=== PATIENT | female | born 1960 | race Caucasian/White ===

== ENCOUNTER 2016-05-28 07:44 | Day surgery (SDC) | payer OTHER ==
[~2016-05-28] VITALS: Ht 170.2 cm; Wt 53.1 kg
[~2016-05-28 07:44] MED LIST: ADALAT CC 60 MG60 MG PO; ADULT LOW DOSE81 M1 PO; ALBUTEROL SULF8.5 GM IH; ALEVE220 MG PO; ANCEF,KEFZ2 GM/100 M IV; ANTIVERT25 MG PO; APRESOLINE25 MG PO; ASPIR 8181 M1 PO; ASPIR-LOW81 MG PO; ATIVAN0.5 MG PO; B COMPLEX WITH1 EACH PO; CATAPRES0.1 MG PO; CYPROHEPTADINE H4 MG PO; DEPAKOTE ER500 MG PO; DIALYVITE TABL1 EACH PO; DILAUDID2 MG PO; DILAUDID4 MG PO; DIOVAN80 MG PO; DIVALPROEX SOD500 M1 PO; DULCOLAX10 MG PR; DURAGESIC12 MCG TD; EMLA 30 GM30 GM TP; ENULOSE10 GM/15 M PO; FENTANYL1 EAC5 TD; FEOSOL325 MG PO; FLEET ENEMA-AD118 ML PR; FLOVENT 11120 INHALA IH; FUROSEMIDE20 MG PO; FUROSEMIDE40 MG PO; GENERLAC10 GM/15 M PO; HUMALOG100 UNIT/2 SC; HYDRALAZINE HCL50 MG PO; HYDROXYZINE HCL25 MG PO; KEFLEX500 MG PO; KIONEX15 GM/60 M PO; LABETALOL HCL200 MG PO; LANTUS (UNITS)1 UNIT SC; LANTUS 10100 UNITS/ SC; LANTUS 3 M100 UNITS1 SC; LASIX10 MG PO; LASIX20 MG PO; LASIX40 MG PO; LEVEMIR100 UNIT/2 SC; LEVOCETIRIZINE D5 MG PO; LEXAPRO10 MG PO; LEXAPRO20 MG PO; LIDOPRIL 2.5%-1 EACH TP; LO-DOSE ASPIRIN81 M1 PO; LOPRESSOR100 MG PO; LORAZEPAM0.5 MG PO; LOSARTAN POTASS50 MG PO; LOTENSIN20 MG PO; METOPROLOL SUCC50 MG PO; METOPROLOL TART25 MG PO; METRONIDAZOLE500 MG PO; MILK OF MAGN PO; MIRTAZAPINE7.5 MG PO; NEURONTIN300 MG PO; NEXIUM40 MG PO; NIFEDIAC CC60 MG PO; NIFEDIPINE ER60 MG PO; NORCO 5/3251 TABLET PO; NORCO 7.5/321 TABLET PO; NORMODYNE,TRAN200 MG PO; NORVASC10 MG PO; NOVOLOG 10100 UNITS/ SC; NOVOLOG PE100 UNITS/ SC; OXYCODONE HCL5 MG PO; OXYCODONE-ACET1 EACH PO; PANTOPRAZOLE SO40 MG PO; PERCOCET 5/31 TABLET PO; PERIACTIN4 MG PO; PLAVIX75 MG PO; PROTONIX40 MG PO; PROVENTIL HFA6.7 GM IH; REMERON15 M2 PO; RENVELA800 MG PO; ROXICODONE5 MG PO; SENSIPAR30 MG PO; SENSIPAR60 MG PO; SIMVASTATIN10 MG PO; SIMVASTATIN20 MG PO; TOPROL XL50 MG PO; TYLENOL EXTRA500 M1 PO; TYLENOL PM1 CAPLET PO; TYLENOL REGULA325 MG PO; VALPROIC A250 MG/5 M PO; VANCOMYCIN HCL1 GM IV; VANCOMYCIN HCL500 MG IV; VENTOLIN HFA18 GM IH; VICODIN,LORT1 TABLET PO; VITAMIN D PO; VITAMIN D35000 UNIT PO; VITAMIN D5000 UNIT PO; ZOCOR20 MG PO; ZOFRAN ODT4 MG PO; ZOFRAN4 MG PO
[2016-05-28 08:29] LABS: POINT-OF-CARE METER ID UU13113696
[2016-05-28 09:32] LABS: METH RESISTANT S AUREUS PCR NEGATIVE (NEGATIVE); PROBE CHECK PASS; SPECIMEN PROCESSING CONTROL PASS
[2016-05-28 09:40] LABS: POINT-OF-CARE METER ID UU13113819
== END 2016-05-28 10:52 ==
LOC: CATH 07:44
PROVIDERS: Surgery
DX: T82.858A Stenosis of other vascular prosthetic devices, implants and grafts, initial encounter (principal); Y83.2 Surgical operation with anastomosis, bypass or graft as the cause of abnormal reaction of the patient, or of later complication, without mention of misadventure at the time of the procedure; Z99.2 Dependence on renal dialysis; I12.0 Hypertensive chronic kidney disease with stage 5 chronic kidney disease or end stage renal disease; E11.22 Type 2 diabetes mellitus with diabetic chronic kidney disease; N18.6 End stage renal disease; I73.9 Peripheral vascular disease, unspecified; E78.5 Hyperlipidemia, unspecified; M19.90 Unspecified osteoarthritis, unspecified site; K21.9 Gastro-esophageal reflux disease without esophagitis; Z86.73 Personal history of transient ischemic attack (TIA), and cerebral infarction without residual deficits; Z86.14 Personal history of Methicillin resistant Staphylococcus aureus infection; F41.1 Generalized anxiety disorder
CPT/HCPCS: 82948; 87081; 87641; C1725; C1769; C1894; J1644; J2250; J3010

== ENCOUNTER → 2016-06-02 | Outpatient (CLI) | payer OTHER | LOC: MRI 13:23 → RAD 13:30 → MRI 13:30 | DX: S06.2X9D Diffuse traumatic brain injury with loss of consciousness of unspecified duration, subsequent encounter (principal) | CPT/HCPCS: 70551 ==

== ENCOUNTER 2016-08-05 17:52 | Emergency (ER) | payer OTHER ==
[~2016-08-05] VITALS: Ht 157.5 cm; Wt 52.8 kg
[2016-08-05 18:29] LABS: EOSINOPHIL (%) 2.1 % (0-5); EOSINOPHIL COUNT 0.1 K/uL (0-0.3); HEMATOCRIT 35.4 % (36.0-46.0); IMMATURE GRANULOCYTE (%) 0.8 % (0.0-0.7); INSTRUMENT ABS NEUTROPHIL CT 3.5 K/uL; MCHC 33.9 G/DL (30.0-36.0); MCV 100.3 FL (83-99); MEAN PLAT.VOLUME 10.9 uM^3 (9.5-12.4); MONOCYTE (%) 8.5 % (3-12); MONOCYTE COUNT 0.4 K/uL (0-0.8); NEUTROPHIL (%) 68.2 % (45-76); NEUTROPHIL COUNT 3.5 K/uL (1.8-6.4); PLATELET COUNT 147 K/uL (156-360); RBC DIS.WIDTH-CV 16.1 % (11.8-14.6); RBC DIS.WIDTH-SD 59.9 % (39-53); RED BLOOD COUNT 3.53 M/uL (3.80-5.20); WHITE BLOOD COUNT 5.2 K/uL (4.1-10.2)
[2016-08-05 18:38] LABS: INTER. NORMALIZED RATIO 1.1; PROTHROMBIN TIME 10.9 (9.2-11.2); PTT 27.9 (25-32)
[2016-08-05 18:39] LABS: CHLORIDE 98 mEq/L (99-109); POTASSIUM 3.2 mEq/L (3.7-5.4); SODIUM 138 mEq/L (136-147)
[2016-08-05 18:41] LABS: GLUCOSE 139 mg/dL (70-99)
[2016-08-05 18:43] LABS: ANION GAP 17 MEQ/L (2-14); TOTAL BILIRUBIN 0.5 mg/dL (0.0-1.0)
[2016-08-05 18:45] LABS: ALKALINE PHOSPHATASE 622 IU/L (3-129); GFR ESTIMATE (CALCULATED) 23 mL/min/
[2016-08-05 18:46] LABS: UREA NITROGEN (BUN) 19 mg/dL (9-23)
[2016-08-05 18:47] LABS: TROP-I INTERPRETATION NEGATIVE; TROPONIN-I 0.02 ng/mL (0.0-0.30)
[2016-08-05 18:48] LABS: LIPASE 160 U/L (1.0-51.0)
[2016-08-05 22:44] VITALS: BP 120/105
== END 2016-08-05 22:45 ==
LOC: EME → EDBD 17:52 → EME 17:52
PROVIDERS: Emergency Medicine
DX: G40.909 Epilepsy, unspecified, not intractable, without status epilepticus (principal); J45.909 Unspecified asthma, uncomplicated; I10 Essential (primary) hypertension; I25.2 Old myocardial infarction; E78.5 Hyperlipidemia, unspecified; E11.9 Type 2 diabetes mellitus without complications; K21.9 Gastro-esophageal reflux disease without esophagitis; Z86.73 Personal history of transient ischemic attack (TIA), and cerebral infarction without residual deficits; Z86.14 Personal history of Methicillin resistant Staphylococcus aureus infection; Z89.512 Acquired absence of left leg below knee; Z99.2 Dependence on renal dialysis
CPT/HCPCS: 70450; 71010; 80053; 81003; 83605; 83690; 84484; 85025; 85610; 85730; 87040; 87077; 87186; 87801; 93005; 99281; 99284; J2405

== ENCOUNTER 2017-01-28 07:32 | Day surgery (SDC) | payer OTHER ==
[~2017-01-28] VITALS: Ht 165.1 cm; Wt 56.7 kg
[2017-01-28 08:24] LABS: POINT-OF-CARE METER ID UU13113696
[2017-01-28 09:40] LABS: METH RESISTANT S AUREUS PCR POSITIVE (NEGATIVE); PROBE CHECK PASS
== END 2017-01-28 10:00 | disposition home or self-care (01) ==
LOC: CATH 07:32
PROVIDERS: Surgery
PROC: 057Y3ZZ Dilation of Upper Vein, Percutaneous Approach (ICD-10-PCS; principal; 2017-01-28)
DX: T82.858A Stenosis of other vascular prosthetic devices, implants and grafts, initial encounter (principal); Y73.1 Therapeutic (nonsurgical) and rehabilitative gastroenterology and urology devices associated with adverse incidents; I12.0 Hypertensive chronic kidney disease with stage 5 chronic kidney disease or end stage renal disease; E11.22 Type 2 diabetes mellitus with diabetic chronic kidney disease; F17.210 Nicotine dependence, cigarettes, uncomplicated; N18.6 End stage renal disease; Z99.2 Dependence on renal dialysis; E78.00 Pure hypercholesterolemia, unspecified; Z79.4 Long term (current) use of insulin; Z86.73 Personal history of transient ischemic attack (TIA), and cerebral infarction without residual deficits; Z79.02 Long term (current) use of antithrombotics/antiplatelets
CPT/HCPCS: 82948; 87641; C1725; C1769; C1894; J1644; J2250; J3010

== ENCOUNTER 2017-09-15 07:49 | Day surgery (SDC) | payer OTHER ==
[~2017-09-15] VITALS: Ht 165.1 cm; Wt 57.0 kg
[~2017-09-15 07:49] MED LIST changes: +AMMONIUM LACTA140 GM TP; +RENVELA2.4 GM PO; +SODIUM POL15 GM/60 M PO
== END 2017-09-15 10:24 ==
LOC: CATH 07:49
DX: T82.858A Stenosis of other vascular prosthetic devices, implants and grafts, initial encounter (principal); Y83.2 Surgical operation with anastomosis, bypass or graft as the cause of abnormal reaction of the patient, or of later complication, without mention of misadventure at the time of the procedure; I12.0 Hypertensive chronic kidney disease with stage 5 chronic kidney disease or end stage renal disease; E11.22 Type 2 diabetes mellitus with diabetic chronic kidney disease; N18.6 End stage renal disease; D64.9 Anemia, unspecified; E78.00 Pure hypercholesterolemia, unspecified; Z99.2 Dependence on renal dialysis; Z89.512 Acquired absence of left leg below knee; Z86.73 Personal history of transient ischemic attack (TIA), and cerebral infarction without residual deficits; F17.200 Nicotine dependence, unspecified, uncomplicated
CPT/HCPCS: 87641; C1725; C1769; C1874; C1894; J1200; J1644; J2250

== ENCOUNTER 2018-01-14 20:44 | Emergency (ER) | payer OTHER ==
[~2018-01-14] VITALS: Ht 162.6 cm; Wt 61.7 kg
[2018-01-14 20:47] VITALS: BP 142/57
== END 2018-01-14 22:36 ==
LOC: EME → EDBD 20:44 → EME 20:44
DX: R41.82 Altered mental status, unspecified (principal); N18.6 End stage renal disease; Z86.73 Personal history of transient ischemic attack (TIA), and cerebral infarction without residual deficits; F03.90 Unspecified dementia, unspecified severity, without behavioral disturbance, psychotic disturbance, mood disturbance, and anxiety; Z66 Do not resuscitate; J98.4 Other disorders of lung; I45.4 Nonspecific intraventricular block; R94.31 Abnormal electrocardiogram [ECG] [EKG]; E11.9 Type 2 diabetes mellitus without complications; I12.0 Hypertensive chronic kidney disease with stage 5 chronic kidney disease or end stage renal disease; E78.5 Hyperlipidemia, unspecified; Z99.2 Dependence on renal dialysis; Z86.19 Personal history of other infectious and parasitic diseases; Z86.14 Personal history of Methicillin resistant Staphylococcus aureus infection; Z98.890 Other specified postprocedural states; Z89.421 Acquired absence of other right toe(s); Z89.512 Acquired absence of left leg below knee; Z90.49 Acquired absence of other specified parts of digestive tract; Z89.022 Acquired absence of left finger(s)
CPT/HCPCS: 80048; 81003; 85027; 93005; 99281; 99284